=== PATIENT | female | born 1950 | race Caucasian/White ===

== ENCOUNTER 2022-04-15 09:28 | Outpatient (CLI) | payer MEDICARE, BC ==
[~2022-04-15 09:28] MED LIST: BARIUM SULFATE 700 MG TABLET PO ONE; barium sulfate 450ml oral suspension ONE
== END 2022-04-15 23:59 | disposition home or self-care (01) ==
LOC: RAD 09:28
PROVIDERS: ATTEND Family Medicine
DX: K44.9 Diaphragmatic hernia without obstruction or gangrene (principal); R13.10 Dysphagia, unspecified; M53.3 Sacrococcygeal disorders, not elsewhere classified; K22.89 Other specified disease of esophagus; Z98.890 Other specified postprocedural states
CPT/HCPCS: 72200; 74240